=== PATIENT | male | born 1970 | race Caucasian/White ===

== ENCOUNTER 2023-09-19 08:26 | Emergency (ER) | payer BC ==
[2023-09-19 08:47] VITALS: O2SAT 99
--- NOTE | 2023-09-19 09:09 | ED Physician Documentation ---
PD HPI FOCAL NEURO - Stated complaint Stated Complaint: CP/FATIGUE/LT HAND NUMB - Chief complaint Chief Complaint: General - History obtained from History obtained from: Patient - History of Present Illness Timing - onset: How many weeks ago (2) Timing - duration: Weeks (2) Timing - details: Gradual onset, Still present Severity of deficit: Moderate Numbness: Hand, Foot, Left Associated symptoms: Chest pain, Other (fatigue) Baseline status: positive: A&OX3, ambulatory, indep Similar symptoms before: Diagnosis (CADASIL) Recently seen: Not recently seen - Additional information Additional information: Javon is a 53-year-old male with history of CADASIL who today presents with a 2-week history of numbness to his left heel and left hand and some pain in his chest. He is here with concerns about the pain in his chest . Review of Systems Constitutional: denies: Fever, Chills, Myalgias Eyes: denies: Decreased vision Ears: denies: Ear pain Nose: denies: Rhinorrhea / runny nose, Congestion Throat: denies: Sore throat Cardiac: reports: Chest pain / pressure. denies: Palpitations, Pedal edema, Calf pain Respiratory: denies: Dyspnea, Cough GI: denies: Abdominal Pain, Nausea, Vomiting, Constipation, Diarrhea : denies: Dysuria, Frequency PD PAST MEDICAL HISTORY - Past Medical History Past Medical History: Yes Other Past Medical History: CADASIL - Past Surgical History Past Surgical History: No - Allergies Allergies/Adverse Reactions: Allergies Allergy/AdvReac Type Severity Reaction Status Date / Time No Known Drug Allergies Allergy Verified 09/19/23 08:38 - Social History Does the pt smoke?: No Smoking Status: Never smoker PD ED PE NORMAL - Vitals Vital signs reviewed: Yes (hypertensive ) - General General: Alert and oriented X 3, No acute distress, Well developed/nourished - HEENT HEENT: Atraumatic, PERRL, EOMI, Ears normal, Moist mucous membranes, Pharynx benign, Dentition benign - Neck Neck: Supple, no meningeal sign, No bony TTP - Cardiac Cardiac: RRR, No murmur - Respiratory Respiratory: No respiratory distress, Clear bilaterally - Abdomen Abdomen: Soft, Non tender - Back Back: No CVA TTP, No spinal TTP - Derm Derm: Normal color, Warm and dry, No rash - Extremities Extremities: No deformity, No edema - Neuro Neuro: Alert and oriented X 3, 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, No motor deficit, No sensory deficit, Normal speech Eye Opening: Spontaneous Motor: Obeys Commands Verbal: Oriented GCS Score: 15 - Psych Psych: Normal mood, Normal affect NIHSS - Time Time: 09:00 - Level of Consciousness Level of consciousness: (0) Alert, Keenly responsive LOC Questions: (0) Answers both Q's correct LOC Commands: (0) Performs both correctly - Gaze Best Gaze: (0) Normal - Visual Visual: (0) No loss - Facial Palsy Facial Palsy: (0) Normal, symmetrical movement - Motor Arms (both separate) Motor Arm (right): (0) No drift Motor Arm (left): (0) No drift - Motor Legs (both separate) Motor Leg (right): (0) No drift Motor Leg (left): (0) No drift - Limb Ataxia Limb Ataxia: (0) Absent - Sensory Sensory: (1) [id number]-sm-[id number] loss - Best Language Best Language: (0) No aphasia - Dysarthria Dysarthria: (0) Normal - Extinction and Inattention (formally neg Extinction and inattention: (0) No abnormality - Total Score/Results Total Score/Result: 1 Results - Vitals Vitals: Vital Signs - 24 hr 09/19/23 09/19/23 08:34 11:47 Temperature 36.5 C 36.6 C Heart Rate 71 68 Respiratory 18 17 Rate Blood Pressure 125/85 H 126/82 H O2 Saturation 99 99 - EKG (time done) 1019 EKG releavant findings:: EKG personally interpreted by author of this note. Relevant findings are: Rate: Rate (enter#) (55) Rhythm: NSR [place]: LAD (borderline) Intervals: Prolonged IN (borderline) QRS: Poor R wave progression Compare to prior EKG: Old EKG unavailable Computer interpretation: Agree with computer - Labs Labs: Laboratory Tests 09/19/23 09/19/23 09/19/23 09:10 09:10 09:10 WBC 4.4 L RBC 4.99 Hgb 15.7 Hct 46.3 MCV 92.8 MCH 31.5 H MCHC 33.9 RDW 12.0 Plt Count 263 MPV 9.6 Neut # (Auto) 3.0 Lymph # (Auto) 0.9 L [place] # (Auto) 0.5 Eos # (Auto) 0.1 Baso # (Auto) 0.0 Absolute Nucleated RBC 0.00 Nucleated RBC % 0.0 Sodium 139 Potassium 4.1 Chloride 100 L Carbon Dioxide 32 Anion Gap 7.0 BUN 14 Creatinine 1.0 Estimated GFR (MDRD) 78 L Glucose 137 H Calcium 10.1 Total Bilirubin 0.8 AST 27 ALT 63 H Alkaline Phosphatase 114 Troponin I High Sens 3.1 Total Protein 7.5 Albumin 5.0 Globulin 2.5 Albumin/Globulin Ratio 2.0 Lipase 103 H - Rads (name of study) chest Relevant Findings:: Prelim report reviewed (Impression: No acute cardiopulmonary process.), EMP independent interpretation of test CT head w/o Relevant Findings:: Prelim report reviewed PD Medical Decision Making - ED course Complexity details: reviewed old records, reviewed results, re-evaluated patient, considered differential, d/w patient Reviewed Lab Results: We reviewed a complete blood count showing a normal white blood cell count normal hemoglobin hematocrit and platelets chemistries were unremarkable with normal electrolytes normal kidney and liver function with the exception of a mildly elevated ALT at 63. High-sensitivity troponin was normal at 3.1 I reviewed these laboratory results and came to the conclusion that patient has not had an acute coronary syndrome causing his chest pain. ED course: 53-year-old male with CADASIL has developed symptoms of numbness to the left hand and foot as well as extreme fatigue and when he developed a pressure in his left chest he is come to the emergency department concerned about his heart. We were able to reassure the patient that he is not having a heart attack and after review of his current living situation it is apparent he has significant stress. He has had the best luck with reducing his stress as far as progression of his symptoms and and he had to move to would be for this to happen. When we reviewed his stressors now he was quite surprised to find that yes indeed there were a number of things that are significantly stressful. He has a son who is being tested for this white matter disease and was unable to schedule an MRI in a timely fashion. He has a mother that he cares for in the home and she is failing with CAD a JOSE ANTONIO. The holidays are coming up and the patient has problems with this as well. We are only able to provide some reassurance today. Departure - Departure Disposition: Home, Self Care Clinical Impression: Atypical chest pain, Stress reaction Condition: Stable Instructions: ED Stress React, ED Chest Pain NonCardiac Follow-Up: ELIOT WATKINS MD [Primary Care Provider] - Comments: Tim, today we were able to determine that the pain you are having in your chest is not related to a heart attack. We did not find abnormalities in the workup that we did. This included an x-ray of your chest and electrocardiogram a CT scan of your head and blood work. There may indeed be some progression of your disease and the recommendation is to reduce her level of stress. Follow-up with your neurologist as planned in the coming month. Forms: PCP List Discharge Date/Time: 09/19/23 11:48
[2023-09-19 09:14] LABS: BASOPHILS % (AUTO) 0.5 %; EOSINOPHILS # (AUTO) 0.1 10^3/uL (0.0-0.7); EOSINOPHILS % (AUTO) 1.1 %; HCT - HEMATOCRIT 46.3 % (42.0-52.0); HGB - HEMOGLOBIN 15.7 g/dL (14.0-18.0); LYMPHOCYTES # (AUTO) 0.9 10^3/uL (1.5-3.5); LYMPHOCYTES % (AUTO) 20.1 %; MEAN CORPUSCULAR HEMOGLOBIN 31.5 pg (27.0-31.0); MEAN CORPUSCULAR HGB CONC 33.9 g/dL (32.0-36.0); MEAN CORPUSCULAR VOLUME 92.8 fL (80.0-94.0); MEAN PLATELET VOLUME 9.6 fL (7.4-11.4); MONOCYTES # (AUTO) 0.5 10^3/uL (0.0-1.0); MONOCYTES % (AUTO) 10.5 %; NEUTROPHILS % (AUTO) 67.6 %; PLT - PLATELET COUNT 263 10^3/uL (130-450); RED BLOOD COUNT 4.99 10^6/uL (4.70-6.10); WHITE BLOOD COUNT 4.4 x10^3/uL (4.8-10.8)
[2023-09-19 09:30] LABS: BILIRUBIN,TOTAL 0.8 mg/dL (0.2-1.0); CALCIUM 10.1 mg/dL (8.5-10.3); POTASSIUM 4.1 mmol/L (3.5-4.5); TOTAL PROTEIN 7.5 g/dL (6.4-8.9)
--- NOTE | 2023-09-19 09:43 | XRAY Report ---
PROCEDURE: Chest 1 View X-Ray INDICATIONS: chest pain TECHNIQUE: One view of the chest was acquired. COMPARISON: None. FINDINGS: Surgical changes and devices: None. Lungs and pleura: No pleural effusions or pneumothorax. Lungs are clear. Mediastinum: Mediastinal contours appear normal. Heart size is normal. Bones and chest wall: No suspicious bony lesions. Overlying soft tissues appear unremarkable. IMPRESSION: No acute cardiopulmonary process. Reviewed by: Betty Boland MD on 09/19/2023 9:41 AM [facility] Approved by: Betty Boland MD on 09/19/2023 9:41 AM [facility] Station ID: [id number]
--- NOTE | 2023-09-19 11:09 | CT Report ---
PROCEDURE: CT brain without contrast INDICATIONS: left sided numbness fatigue CADASIL TECHNIQUE: Helical axial CT of the brain was obtained without contrast and reformatted in multiple p lanes. Radiation dose reduction was achieved using automated exposure control or adjustment of mA and /or kV according to patient size. COMPARISON: None FINDINGS: CSF spaces: Ventricles are appropriate in size and position. No hydrocephalus. Basal cisterns unre markable. Brain: No midline shift. No intracranial masses or hemorrhage. Cardoso-white matter interface is norm al. Mild atrophy and patchy/confluent white matter decreased attenuation. No evidence of large territ ory old cortical infarct Skull and face: Calvarium and skull base are unremarkable without suspicious lesion. Sinuses: Visualized sinuses and mastoids are clear. IMPRESSION: No intracranial hemorrhage or mass effect. Confluent patchy decreased white matter attenuation consistent with advanced chronic ischemic change Reviewed by: Joshua Hodges MD on 09/19/2023 10:08 AM [facility] Approved by: Joshua Hodges MD on 09/19/2023 10:08 AM [place] Station ID: [id number]
[2023-09-19 11:56] VITALS: BP 126/82
== END 2023-09-19 11:48 | disposition home or self-care (01) ==
LOC: ED 08:26
DX: F43.9 Reaction to severe stress, unspecified (principal); R07.89 Other chest pain; I67.850 Cerebral autosomal dominant arteriopathy with subcortical infarcts and leukoencephalopathy
CPT/HCPCS: 36415; 80053; 83690; 84484; 85025; 93005; 99283; 99284

== ENCOUNTER 2024-05-11 07:12 | Outpatient (CLI) | payer BC ==
[2024-05-11 08:08] LABS: ALBUMIN 4.8 g/dL (3.2-5.5)
[2024-05-11 08:14] LABS: ALKALINE PHOSPHATASE 89 IU/L (42-121); ALT ALANINE AMINOTRANSFERASE 46 IU/L (10-60); AST ASPARTATE AMINOTRANSFERASE 25 IU/L (10-42); BILIRUBIN,DIRECT 0.17 mg/dL (0.03-0.18); BILIRUBIN,TOTAL 0.8 mg/dL (0.2-1.0); CHOL/HDL RATIO 2.7 (<5.0); CHOLESTEROL 134 mg/dL; HDL CHOLESTEROL 50 mg/dL; LDL CHOLESTEROL,CALCULATED 52 mg/dL; TOTAL PROTEIN 7.1 g/dL (6.4-8.9); TRIGLYCERIDES 158 mg/dL; VLDL CHOLESTEROL 32 mg/dL
[2024-05-11 08:50] LABS: ESTIMATED AVERAGE GLUCOSE 117 mg/dL (70-100); HEMOGLOBIN A1c% 5.7 % (4.27-6.07)
== END 2024-05-11 07:13 | disposition home or self-care (01) ==
LOC: LAB 07:12
PROVIDERS: ATTEND Internal Medicine
DX: R73.03 Prediabetes (principal); R53.83 Other fatigue; K76.0 Fatty (change of) liver, not elsewhere classified; E78.2 Mixed hyperlipidemia
CPT/HCPCS: 36415; 80061; 80076; 83036; 83721; 84403